=== PATIENT | male | born 1950 | race Caucasian/White ===

== ENCOUNTER 2016-03-25 19:37 | Emergency (ER) | payer MEDICARE, OTHER ==
[~2016-03-25] VITALS: Ht 172.7 cm; Wt 109.1 kg
[~2016-03-25 19:37] MED LIST: ALEVE 220MG220 MG PO; AMITRIPTYLINE H25 M1 PO; ASPIRIN 81M81 MG/TA2 PO; ASPIRIN E.C. 8181 MG PO; B-121000 MCG PO; CHLORTHALIDONE PO; GLUCOSAMINE & C1 CA1 PO; HYGROTON 2525 MG/TAB PO; INDERAL LA160 MG PO; LYRICA 150MG C150 MG PO; NORVASC 5MG5 MG/TAB PO; NUVIGIL150 MG PO; PERCOCET 325 MG1 TA3 PO; PLAVIX 75MG TAB75 MG PO; PRILOSEC 20MG20 MG PO; REQUIP 0.5MG0.5 MG PO; REQUIP0.25 MG PO; TRIAMCINOLONE A15 G3 TP; TRICOR145 MG PO; TYLENOL ARTHRI650 M1 PO; VIAGRA100 M1 PO; ZESTRIL40 MG PO; ZOCOR 20MG20 MG PO; ZYLOPRIM 300MG300 MG PO; [UNRECOGNIZED DRUG - CODE] TOP
[2016-03-25 19:38] VITALS: TEMP 98
[2016-03-25 20:41] VITALS: BP 142/88; PULSE 65
== END 2016-03-25 20:47 | disposition home or self-care (01) ==
LOC: COL.ER 19:37
DX: S23.41XA Sprain of ribs, initial encounter (principal); S29.011A Strain of muscle and tendon of front wall of thorax, initial encounter; I10 Essential (primary) hypertension; X50.9XXA Other and unspecified overexertion or strenuous movements or postures, initial encounter; Y92.009 Unspecified place in unspecified non-institutional (private) residence as the place of occurrence of the external cause
CPT/HCPCS: A9284

== ENCOUNTER 2016-05-19 10:43 | Outpatient (CLI) | payer MEDICARE, OTHER ==
[~2016-05-19] VITALS: Ht 172.7 cm; Wt 110.0 kg
[2016-05-19 11:15] VITALS: BP 106/57; PULSE 71; TEMP 97.9
== END 2016-05-19 11:36 | disposition home or self-care (01) ==
LOC: EUO 10:43
DX: N35.8 Other urethral stricture (principal)

== ENCOUNTER 2016-06-11 11:18 | Day surgery (SDC) | payer MEDICARE, OTHER ==
[~2016-06-11] VITALS: Ht 172.7 cm; Wt 109.0 kg
[2016-06-11] VITALS (10 sets, daily range): BP systolic 96–131; BP diastolic 64–88; PULSE 59–66; TEMP 98.2
[2016-06-11 12:09] LABS: HEMATOCRIT 39.5 % (42.0-52.0); HEMOGLOBIN 13.5 g/dl (13.5-18.0); MEAN CELL VOLUME 94 fl (80.0-100.0); MEAN CORPUSCULAR HEMOGLOBIN 32 pg (27.0-31.0); MEAN CORPUSCULAR HGB CONC 34 g/dl (33.0-37.0); MEAN PLATELET VOLUME 11.5 fl (7.4-10.4); PLATELET COUNT 218 K/mm3 (130-400); REDCELL DISTRIBUTION WIDTH-CV 13.7 % (11.5-14.5); WHITE BLOOD COUNT 6.6 K/mm3 (4.8-10.8)
[2016-06-11 12:15] LABS: INR 1.1 (0.8-3.0); PROTHROMBIN TIME 12.2 SECONDS (9.7-12.8)
[2016-06-11 12:23] LABS: CALCIUM 9.8 mg/dL (8.4-10.2); CREATININE, serum 1.57 mg/dL (0.66-1.25); POTASSIUM 3.9 mmol/L (3.4-5.0)
[2016-06-11] MEDS ORDERED: RITALIN10 MG PO (12:44)
[2016-06-11] MEDS ORDERED: K-DUR 10 MEQ T10 MEQ PO (12:46)
[2016-06-11] MEDS ORDERED: PERCOCET 325 MG1 TAB PO (12:46)
[2016-06-11] MEDS ORDERED: COLACE 100100 MG/CAP PO (12:48)
== END 2016-06-11 18:52 | disposition home or self-care (01) ==
LOC: EUO 11:18
PROVIDERS: Internal Medicine Interventional Cardiology
DX: Z01.810 Encounter for preprocedural cardiovascular examination (principal); I25.10 Atherosclerotic heart disease of native coronary artery without angina pectoris; R94.39 Abnormal result of other cardiovascular function study; Z86.73 Personal history of transient ischemic attack (TIA), and cerebral infarction without residual deficits; I83.93 Asymptomatic varicose veins of bilateral lower extremities
CPT/HCPCS: A9270-GY; C1725; C1769; C1887; C1894; J1940; J2250; J3010; Q9967